=== PATIENT | female | born 1985 | race Caucasian/White ===

== ENCOUNTER → 2016-08-16 | Outpatient (CLI) | payer MEDICAID ==
[~2016-08-16] VITALS: Ht 160 cm; Wt 121.6 kg
[~2016-08-16] MED LIST: ABILIFY 15MG TA15 MG PO; ABILIFY20 MG PO; AMOXICILLIN 50500 MG PO; BACTRIM DS 8001 TA1 PO; BUSPAR 30MG30 MG/TAB PO; CARAFATE 1GM1 G PO; CLEOCIN HCL300 MG PO; DEPO PROVER150 MG/ML IM; DESYREL 100MG100 MG PO; EFFEXOR; EFFEXOR-XR150 MG PO; INDERAL 10MG10 MG PO; LAMICTAL 100MG100 MG PO; LAMICTAL200 MG PO; LATUDA60 MG PO; LOPRESSOR 225 MG/TAB PO; NEXPLANON68 MG ID; NORCO 325 MG-51 TAB PO; NUVARING VAG RING VG; PEPCID40 MG PO; PRIL40 PO; RESTORIL 1515 MG/CAP PO; TRAZADONE HYDR100 MG PO; WELLBUTRIN XL300 M1 PO; ZOLOFT50 MG PO; ZYRTEC 10MG10 MG PO; [UNRECOGNIZED DRUG - REMARK]
[2016-08-16 15:53] VITALS: BP 114/66; PULSE 98
== END ==
LOC: LIGHT 11:32
DX: E66.01 Morbid (severe) obesity due to excess calories (principal); M54.5 Low back pain; F33.8 Other recurrent depressive disorders; Z68.42 Body mass index [BMI] 45.0-49.9, adult

== ENCOUNTER 2017-02-19 20:22 | Emergency (ER) | payer MEDICAID ==
[~2017-02-19] VITALS: Ht 160 cm; Wt 127.3 kg
[~2017-02-19 20:22] MED LIST changes: -CLEOCIN HCL300 MG PO; -LATUDA60 MG PO
[2017-02-19 20:24] VITALS: TEMP 99.9
[2017-02-19] MEDS ORDERED: LATUDA60 MG PO (20:39)
[2017-02-19 21:47] VITALS: BP 133/83; PULSE 110
[2017-02-19] MEDS ORDERED: NORCO 325 MG-51 TAB PO (21:51)
[2017-02-19] MEDS ORDERED: CLEOCIN HCL300 MG PO (21:51)
== END 2017-02-19 21:58 | disposition home or self-care (01) ==
LOC: COL.ER 20:22
DX: L05.91 Pilonidal cyst without abscess (principal); F41.9 Anxiety disorder, unspecified; F32.9 Major depressive disorder, single episode, unspecified; F17.210 Nicotine dependence, cigarettes, uncomplicated; Z90.89 Acquired absence of other organs; Z98.890 Other specified postprocedural states

== ENCOUNTER → 2017-05-16 | Outpatient (CLI) | payer MEDICAID ==
[~2017-05-16] VITALS: Ht 160 cm; Wt 132.2 kg
[~2017-05-16] MED LIST changes: +CLEOCIN HCL300 MG PO; +GLUCOPHAGE500 MG/TAB PO; +LATUDA60 MG PO
[2017-05-16 16:01] VITALS: BP 116/66; PULSE 100
== END ==
LOC: LIGHT 10:18
DX: E66.01 Morbid (severe) obesity due to excess calories (principal); Z68.43 Body mass index [BMI] 50.0-59.9, adult; Z71.3 Dietary counseling and surveillance; M54.5 Low back pain; F33.9 Major depressive disorder, recurrent, unspecified

== ENCOUNTER → 2017-05-22 | Outpatient (CLI) | payer MEDICAID | LOC: LIGHT 08:43 | DX: Z01.89 Encounter for other specified special examinations (principal) ==

== ENCOUNTER → 2017-06-21 | Outpatient (CLI) | payer MEDICAID ==
[2017-06-21 16:08] LABS: INFLUENZA A NEGATIVE; INFLUENZA B NEGATIVE
== END ==
LOC: COL.LAB 15:25
PROVIDERS: Registered Nurse
DX: J06.9 Acute upper respiratory infection, unspecified (principal)

== ENCOUNTER 2017-07-11 10:17 | Emergency (ER) | payer MEDICAID ==
[~2017-07-11] VITALS: Ht 160 cm; Wt 131.8 kg
[2017-07-11 10:31] VITALS: BP 135/90; TEMP 98.8
[2017-07-11] MEDS ORDERED: AMITRIPTYLINE H25 M1 PO (10:35)
[2017-07-11 11:50] VITALS: PULSE 101
== END 2017-07-11 11:52 | disposition home or self-care (01) ==
LOC: COL.ER 10:17
DX: M67.432 Ganglion, left wrist (principal); E11.9 Type 2 diabetes mellitus without complications; F31.9 Bipolar disorder, unspecified; F41.9 Anxiety disorder, unspecified; K21.9 Gastro-esophageal reflux disease without esophagitis; Z79.84 Long term (current) use of oral hypoglycemic drugs

== ENCOUNTER → 2017-07-21 | Outpatient (CLI) | payer MEDICAID ==
[~2017-07-21] MED LIST changes: +AMITRIPTYLINE H25 M1 PO
== END ==
LOC: COL.RAD 10:39
DX: M67.432 Ganglion, left wrist (principal)

== ENCOUNTER → 2017-08-10 | Outpatient (CLI) | payer MEDICAID ==
[~2017-08-10] VITALS: Ht 160 cm; Wt 129.7 kg
[~2017-08-10] MED LIST changes: +MINIPRESS 1M1 MG/CAP PO; +VRAYLAR3 MG PO
[2017-08-10 09:37] VITALS: BP 118/60; PULSE 68
== END ==
LOC: LIGHT 08-30 11:14
DX: E66.01 Morbid (severe) obesity due to excess calories (principal); Z68.43 Body mass index [BMI] 50.0-59.9, adult; Z71.3 Dietary counseling and surveillance; M54.5 Low back pain; F32.9 Major depressive disorder, single episode, unspecified
CPT/HCPCS: G0463

== ENCOUNTER → 2017-08-30 | Outpatient (CLI) | payer MEDICAID | LOC: LIGHT 10:46 | DX: Z01.818 Encounter for other preprocedural examination (principal) ==

== ENCOUNTER → 2017-09-07 | Outpatient (CLI) | payer MEDICAID ==
[~2017-09-07] VITALS: Ht 160 cm; Wt 131.3 kg
[~2017-09-07] MED LIST changes: +AMBIEN 5MG TABLE5 MG PO
[2017-09-07 13:38] VITALS: BP 120/78; PULSE 100
== END ==
LOC: LIGHT 09:26
DX: E66.01 Morbid (severe) obesity due to excess calories (principal); Z68.43 Body mass index [BMI] 50.0-59.9, adult; Z71.3 Dietary counseling and surveillance; M54.5 Low back pain; F33.9 Major depressive disorder, recurrent, unspecified
CPT/HCPCS: G0463

== ENCOUNTER → 2017-11-02 | Outpatient (CLI) | payer MEDICAID ==
[~2017-11-02] VITALS: Ht 160 cm; Wt 127.0 kg
[2017-11-02 08:38] VITALS: BP 96/70; PULSE 64
== END ==
LOC: LIGHT 08:16
DX: E66.01 Morbid (severe) obesity due to excess calories (principal); Z68.42 Body mass index [BMI] 45.0-49.9, adult; Z71.3 Dietary counseling and surveillance; M54.5 Low back pain; F33.9 Major depressive disorder, recurrent, unspecified
CPT/HCPCS: G0463

== ENCOUNTER → 2018-02-27 | Outpatient (CLI) | payer MEDICAID ==
[2018-02-27 18:18] LABS: BASO # 0.1 (0.0-0.2); BASO % 0.8 % (0.0-2.0); EOS # 0.2 (0.0-0.7); EOS % 2.2 % (0-4.0); GRAN # 5.4 (1.4-6.5); GRAN % 48.9 % (42.2-75.2); HEMATOCRIT 36.2 % (37.0-47.0); HEMOGLOBIN 12.3 g/dl (12.5-16.0); LYMPH # 4.8 (1.2-3.4); MEAN CELL VOLUME 85 fl (80.0-100.0); MEAN CORPUSCULAR HEMOGLOBIN 29 pg (27.0-31.0); MEAN CORPUSCULAR HGB CONC 34 g/dl (33.0-37.0); MEAN PLATELET VOLUME 8.9 fl (7.4-10.4); MONO # 0.5 (0.1-0.6); MONO % 4.8 % (1.7-9.3); PLATELET COUNT 367 K/mm3 (130-400); RED BLOOD COUNT 4.27 M/mm3 (4.10-5.30); REDCELL DISTRIBUTION WIDTH-CV 13.2 % (11.5-14.5)
[2018-02-27 18:28] LABS: ALBUMIN 4.2 gm/dL (3.5-5.0); BILIRUBIN,TOTAL 0.6 mg/dL (0.0-1.0); CALCIUM 9.3 mg/dL (8.4-10.2); CREATININE, serum 0.61 mg/dL (0.52-1.25); POTASSIUM 3.7 mmol/L (3.4-5.0); TOTAL PROTEIN 7.9 gm/dL (6.4-8.2)
[2018-02-27 18:42] LABS: ERYTHROCYTE SEDIMENTATION RATE 35 mm/hr (0-20)
[2018-02-27 18:58] LABS: TSH w REFLEX 2.32 uIU/mL (0.465-4.680)
[2018-02-28 14:15] LABS: RHEUMATOID FACTOR-SCREEN <15 IU/mL (0-29)
[2018-02-28 16:16] LABS: COMPLEMENT-C3 178 mg/dL (79-152); COMPLEMENT-C4 32 mg/dL (18-55)
[2018-03-01 00:40] LABS: ANA SCREEN with REFLEX Positive (Negative)
== END ==
LOC: COL.LAB 17:51
PROVIDERS: Dermatology
DX: L50.8 Other urticaria (principal)

== ENCOUNTER 2019-07-30 10:56 | Outpatient (RCR) | payer OTHER | END 2019-08-15 13:52 | disposition home or self-care (01) | LOC: WSPT 10:56 | DX: Z04.41 Encounter for examination and observation following alleged adult rape (principal) ==

== ENCOUNTER → 2019-07-30 | Outpatient (CLI) | payer OTHER | LOC: COL.RAD 12:48 | DX: Z02.71 Encounter for disability determination (principal); M17.11 Unilateral primary osteoarthritis, right knee ==

== ENCOUNTER → 2019-11-26 | Outpatient (CLI) | payer MEDICAID ==
[2019-11-26 16:23] LABS: BASO # 0.1 (0.0-0.2); BASO % 0.7 % (0.0-2.0); EOS # 0.2 (0.0-0.7); EOS % 1.9 % (0-4.0); GRAN # 7.2 (1.4-6.5); GRAN % 63.2 % (42.2-75.2); LYMPH # 3.3 (1.2-3.4); MEAN CELL VOLUME 85 fl (80.0-100.0); MEAN CORPUSCULAR HEMOGLOBIN 28 pg (27.0-31.0); MEAN CORPUSCULAR HGB CONC 33 g/dl (33.0-37.0); MEAN PLATELET VOLUME 8.9 fl (7.4-10.4); MONO # 0.5 (0.1-0.6); MONO % 4.8 % (1.7-9.3); PLATELET COUNT 347 K/mm3 (130-400); RED BLOOD COUNT 4.29 M/mm3 (4.10-5.30)
[2019-11-26 16:28] LABS: ALANINE AMINOTRANSFERASE 15 U/L (4-34); ALBUMIN 4.5 gm/dL (3.5-5.0); ALKALINE PHOSPHATASE 106 U/L (50-136); ANION GAP 10 mmol/L (7-16); AST,SGOT 22 U/L (15-37); BILIRUBIN,TOTAL 0.8 mg/dL (0.0-1.0); BLOOD UREA NITROGEN 4 mg/dL (7-17); CALCIUM 9.6 mg/dL (8.4-10.2); CARBON DIOXIDE 24 mmol/L (22-30); CHLORIDE 102 mmol/L (98-107); CREATININE, serum 0.56 (0.52-1.25); GLUCOSE 101 mg/dL (74-106); POTASSIUM 3.8 mmol/L (3.4-5.0); SODIUM 137 mmol/L (137-145); TOTAL PROTEIN 8.7 gm/dL (6.4-8.2)
[2019-11-26 16:39] LABS: HEMATOCRIT 36.6 % (37.0-47.0)
[2019-11-26 16:40] LABS: TROPONIN-I < 0.012 ng/mL (0.000-0.035)
== END ==
LOC: COL.RAD 15:56
PROVIDERS: Registered Nurse
DX: R09.1 Pleurisy (principal); R07.9 Chest pain, unspecified

== ENCOUNTER → 2019-11-27 | Outpatient (CLI) | payer MEDICAID | LOC: COL.RAD 14:44 | DX: R79.89 Other specified abnormal findings of blood chemistry (principal); R07.9 Chest pain, unspecified; R00.0 Tachycardia, unspecified | CPT/HCPCS: Q9967 ==

== ENCOUNTER → 2019-12-19 | Outpatient (CLI) | payer MEDICAID | LOC: COL.CARD 12-12 10:30 | DX: R00.0 Tachycardia, unspecified (principal); R07.9 Chest pain, unspecified ==

== ENCOUNTER → 2020-05-26 | Outpatient (CLI) | payer MEDICAID | LOC: ZCOL.LAB 16:47 | DX: J98.9 Respiratory disorder, unspecified (principal); R19.7 Diarrhea, unspecified; Z20.828 Contact with and (suspected) exposure to other viral communicable diseases ==

== ENCOUNTER 2021-03-10 09:16 | Outpatient (RCR) | payer MEDICAID | END 2021-03-10 11:00 | disposition home or self-care (01) | LOC: WSPT 09:16 | DX: M25.562 Pain in left knee (principal); M25.561 Pain in right knee ==